=== PATIENT | female | born 1990 | race Caucasian/White ===

== ENCOUNTER 2016-05-11 10:26 | Emergency (ER) | payer OTHER, MEDICAID ==
[~2016-05-11] VITALS: Ht 160 cm; Wt 118.2 kg
[~2016-05-11 10:26] MED LIST: ALDACTONE 25MG25 M1 PO; BCP TD; CYMBALTA 30MG30 MG PO; LORTAB 10/500 51 TAB; METRONIDAZOLE500 MG PO; NORCO 325 MG-51 TAB PO; PHENERGAN 25 TA25 MG PO; PHENERGAN25 MG RC; PRINIVIL10 MG PO; VICODIN 5/5001 UDTAB PO
[2016-05-11 10:30] VITALS: TEMP 98.2
[2016-05-11] MEDS ORDERED: ZOVIA PO (10:36)
[2016-05-11 11:17] LABS: BASO # 0.1 (0.0-0.2); BASO % 0.7 % (0.0-2.0); EOS # 0.1 (0.0-0.7); EOS % 1.4 % (0-4.0); GRAN # 7.7 (1.4-6.5); GRAN % 78.5 % (42.2-75.2); HEMOGLOBIN 15.3 g/dl (12.5-16.0); LYMPH # 1.4 (1.2-3.4); LYMPH % 14.3 % (20.0-51.0); MEAN CELL VOLUME 96 fl (80.0-100.0); MEAN CORPUSCULAR HEMOGLOBIN 32 pg (27.0-31.0); MEAN CORPUSCULAR HGB CONC 33 g/dl (33.0-37.0); MEAN PLATELET VOLUME 9.5 fl (7.4-10.4); MONO # 0.4 (0.1-0.6); MONO % 4.2 % (1.7-9.3); PLATELET COUNT 334 K/mm3 (130-400); RED BLOOD COUNT 4.79 M/mm3 (4.10-5.30); REDCELL DISTRIBUTION WIDTH-CV 14.3 % (11.5-14.5); WHITE BLOOD COUNT 9.8 K/mm3 (4.8-10.8)
[2016-05-11 11:28] LABS: ADJUSTED CALCIUM 9.4 mg/dL (8.4-10.2); ALBUMIN 4.1 gm/dL (3.5-5.0); BILIRUBIN,TOTAL 0.5 mg/dL (0.0-1.0); CALCIUM 9.5 mg/dL (8.4-10.2); CREATININE, serum 0.71 mg/dL (0.52-1.25); POTASSIUM 4.2 mmol/L (3.4-5.0); TOTAL PROTEIN 7.2 gm/dL (6.4-8.2)
[2016-05-11] MEDS ORDERED: ULTRAM 50MG TAB50 MG PO (12:40)
[2016-05-11 12:51] LABS: PH 6 (5-8); URINE APPEARANCE Clear; URINE BACTERIA None Seen /hpf; URINE BILIRUBIN Negative (NEGATIVE); URINE BLOOD 3+ (NEGATIVE); URINE COLOR Yellow; URINE GLUCOSE Negative (NEGATIVE); URINE KETONE Negative (NEGATIVE); URINE RBC None Seen /hpf; URINE UROBILINOGEN Negative (NEGATIVE); URINE WBC 0-2 /hpf
[2016-05-11] MEDS ORDERED: FLAGYL500 MG PO (13:28)
[2016-05-11 13:53] VITALS: BP 143/109; PULSE 83
[2016-05-11 16:22] LABS: CHLAMYDIA/TRACH by PCR Female Not Detected; NEISSERIA GON by PCR Female Not Detected
== END 2016-05-11 13:53 | disposition home or self-care (01) ==
LOC: COL.ER 10:26
PROVIDERS: Physician Assistant
DX: N83.202 Unspecified ovarian cyst, left side (principal); N76.0 Acute vaginitis; B96.89 Other specified bacterial agents as the cause of diseases classified elsewhere
CPT/HCPCS: J1170; J1885; J2405; J7030

== ENCOUNTER → 2016-11-09 | Outpatient (CLI) | payer BC, MEDICAID ==
[~2016-11-09] MED LIST changes: +FLAGYL500 MG PO; +ULTRAM 50MG TAB50 MG PO; +ZOVIA PO
== END ==
LOC: MHCPAIN 11:31
DX: G89.29 Other chronic pain (principal); M47.817 Spondylosis without myelopathy or radiculopathy, lumbosacral region; M53.3 Sacrococcygeal disorders, not elsewhere classified; F17.210 Nicotine dependence, cigarettes, uncomplicated
CPT/HCPCS: G0463

== ENCOUNTER → 2016-11-23 | Outpatient (CLI) | payer BC, MEDICAID | LOC: MHCPAIN 10:03 | DX: G89.29 Other chronic pain (principal); M47.817 Spondylosis without myelopathy or radiculopathy, lumbosacral region; M53.3 Sacrococcygeal disorders, not elsewhere classified | CPT/HCPCS: G0463 ==

== ENCOUNTER → 2016-12-23 | Outpatient (CLI) | payer BC, MEDICAID, OTHER ==
[~2016-12-23] MED LIST changes: +ATARAX 25MG25 MG/TAB PO; +ZESTORETIC 25 M1 TAB PO; +ZOFRAN ODT4 MG PO
== END ==
LOC: MHCPAIN 10:35
DX: M53.3 Sacrococcygeal disorders, not elsewhere classified (principal)
CPT/HCPCS: G0260; J1040; Q9967

== ENCOUNTER → 2017-01-21 | Outpatient (CLI) | payer BC, MEDICAID ==
[~2017-01-21] MED LIST changes: -ATARAX 25MG25 MG/TAB PO; -ZESTORETIC 25 M1 TAB PO; -ZOFRAN ODT4 MG PO
== END ==
LOC: MHCPAIN 10:31
DX: G89.29 Other chronic pain (principal); M47.817 Spondylosis without myelopathy or radiculopathy, lumbosacral region; M53.3 Sacrococcygeal disorders, not elsewhere classified; F17.210 Nicotine dependence, cigarettes, uncomplicated; Z98.1 Arthrodesis status
CPT/HCPCS: G0463

== ENCOUNTER → 2017-03-18 | Outpatient (CLI) | payer BC, MEDICAID | LOC: MHCPAIN 10:56 | DX: G89.29 Other chronic pain (principal); M47.817 Spondylosis without myelopathy or radiculopathy, lumbosacral region; M53.3 Sacrococcygeal disorders, not elsewhere classified; F17.210 Nicotine dependence, cigarettes, uncomplicated | CPT/HCPCS: G0463 ==

== ENCOUNTER → 2017-06-06 | Outpatient (CLI) | payer BC, MEDICAID | LOC: MHCPAIN 09:43 | DX: G89.29 Other chronic pain (principal); M47.817 Spondylosis without myelopathy or radiculopathy, lumbosacral region; M53.3 Sacrococcygeal disorders, not elsewhere classified | CPT/HCPCS: G0463 ==

== ENCOUNTER → 2017-09-05 | Outpatient (CLI) | payer BC, MEDICAID | LOC: MHCPAIN 08:40 | DX: G89.29 Other chronic pain (principal); M47.817 Spondylosis without myelopathy or radiculopathy, lumbosacral region; M53.3 Sacrococcygeal disorders, not elsewhere classified; F17.210 Nicotine dependence, cigarettes, uncomplicated | CPT/HCPCS: G0463 ==

== ENCOUNTER 2017-09-28 19:46 | Emergency (ER) | payer BC, MEDICAID ==
[~2017-09-28] VITALS: Ht 160 cm; Wt 127.3 kg
[2017-09-28 19:51] VITALS: TEMP 98.8
[2017-09-28 20:39] LABS: COLLECTION METHOD CLEAN CATCH
[2017-09-28 20:53] LABS: MUCOUS Present /lpf; PH 5 (5-8); URINE APPEARANCE Hazy; URINE BACTERIA None Seen /hpf; URINE BILIRUBIN Negative (NEGATIVE); URINE BLOOD 1+ (NEGATIVE); URINE COLOR Yellow; URINE GLUCOSE Negative (NEGATIVE); URINE KETONE Negative (NEGATIVE); URINE LEUKOCYTE ESTERASE Negative (NEGATIVE); URINE NITRATE Negative (NEGATIVE); URINE PROTEIN(semi-quant) Negative (NEGATIVE); URINE UROBILINOGEN Negative (NEGATIVE)
[2017-09-28 21:20] LABS: BASO # 0.1 (0.0-0.2); BASO % 0.5 % (0.0-2.0); EOS # 0.2 (0.0-0.7); EOS % 1.1 % (0-4.0); GRAN % 61.5 % (42.2-75.2); HEMATOCRIT 44.1 % (37.0-47.0); HEMOGLOBIN 15.4 g/dl (12.5-16.0); LYMPH # 4.1 (1.2-3.4); LYMPH % 27.8 % (20.0-51.0); MEAN CELL VOLUME 95 fl (80.0-100.0); MEAN CORPUSCULAR HEMOGLOBIN 33 pg (27.0-31.0); MEAN CORPUSCULAR HGB CONC 35 g/dl (33.0-37.0); MEAN PLATELET VOLUME 9.5 fl (7.4-10.4); MONO # 1.2 (0.1-0.6); PLATELET COUNT 296 K/mm3 (130-400); RED BLOOD COUNT 4.65 M/mm3 (4.10-5.30)
[2017-09-28] MEDS ORDERED: ATARAX 25MG25 MG/TAB PO (21:34)
[2017-09-28] MEDS ORDERED: ZESTORETIC 25 M1 TAB PO (21:34)
[2017-09-28 21:39] LABS: ALBUMIN 4.2 gm/dL (3.5-5.0); BILIRUBIN,TOTAL 0.8 mg/dL (0.0-1.0); C-REACTIVE PROTEIN 0.6 mg/dL (0.0-0.9); CALCIUM 9.3 mg/dL (8.4-10.2); CREATININE, serum 0.74 mg/dL (0.52-1.25); POTASSIUM 3.4 mmol/L (3.4-5.0); TOTAL PROTEIN 7.8 gm/dL (6.4-8.2)
[2017-09-28] MEDS ORDERED: ZOFRAN ODT4 MG PO (22:27)
[2017-09-28 22:45] VITALS: BP 133/73; PULSE 107
== END 2017-09-28 23:23 | disposition home or self-care (01) ==
LOC: COL.ER 19:46
PROVIDERS: Nurse Practitioner
DX: R10.31 Right lower quadrant pain (principal); F32.9 Major depressive disorder, single episode, unspecified; I10 Essential (primary) hypertension; F17.210 Nicotine dependence, cigarettes, uncomplicated; Z98.890 Other specified postprocedural states; Z90.49 Acquired absence of other specified parts of digestive tract; Z90.89 Acquired absence of other organs
CPT/HCPCS: J1170; J2405; J7030

== ENCOUNTER → 2017-10-05 | Outpatient (CLI) | payer BC, MEDICAID ==
[~2017-10-05] MED LIST changes: +ATARAX 25MG25 MG/TAB PO; +ZESTORETIC 25 M1 TAB PO; +ZOFRAN ODT4 MG PO
== END ==
LOC: MHCPAIN 08:25
DX: G89.29 Other chronic pain (principal); M47.817 Spondylosis without myelopathy or radiculopathy, lumbosacral region; M53.3 Sacrococcygeal disorders, not elsewhere classified
CPT/HCPCS: G0463

== ENCOUNTER → 2017-11-04 | Outpatient (CLI) | payer BC, MEDICAID | LOC: MHCPAIN 10:48 | DX: G89.29 Other chronic pain (principal); M47.817 Spondylosis without myelopathy or radiculopathy, lumbosacral region; M53.3 Sacrococcygeal disorders, not elsewhere classified | CPT/HCPCS: G0463 ==

== ENCOUNTER → 2017-12-02 | Outpatient (CLI) | payer BC, MEDICAID | LOC: MHCPAIN 11:30 | DX: G89.29 Other chronic pain (principal); M47.817 Spondylosis without myelopathy or radiculopathy, lumbosacral region; M53.3 Sacrococcygeal disorders, not elsewhere classified | CPT/HCPCS: G0463 ==

== ENCOUNTER → 2017-12-28 | Outpatient (CLI) | payer BC, MEDICAID | LOC: MHCPAIN 09:31 | DX: G89.29 Other chronic pain (principal); M47.817 Spondylosis without myelopathy or radiculopathy, lumbosacral region; M53.3 Sacrococcygeal disorders, not elsewhere classified | CPT/HCPCS: G0463 ==

== ENCOUNTER → 2018-01-27 | Outpatient (CLI) | payer BC, MEDICAID | LOC: MHCPAIN 09:08 | DX: G89.29 Other chronic pain (principal); M47.817 Spondylosis without myelopathy or radiculopathy, lumbosacral region; M53.3 Sacrococcygeal disorders, not elsewhere classified | CPT/HCPCS: G0463 ==

== ENCOUNTER → 2018-02-09 | Outpatient (CLI) | payer BC, MEDICAID | LOC: MHCPAIN 09:52 | DX: M53.3 Sacrococcygeal disorders, not elsewhere classified (principal) | CPT/HCPCS: G0260; J1040; Q9967 ==

== ENCOUNTER 2022-07-14 15:28 | Emergency (ER) | payer SELFPAY ==
[~2022-07-14] VITALS: Ht 160 cm; Wt 127.3 kg
[2022-07-14 15:34] VITALS: BP 146/93; PULSE 102; TEMP 97.7
[2022-07-14] MEDS ORDERED: NORCO 325 MG-51 TAB PO (16:47)
== END 2022-07-14 17:07 | disposition home or self-care (01) ==
LOC: COL.ER 15:28
DX: S99.922A Unspecified injury of left foot, initial encounter (principal); Z88.5 Allergy status to narcotic agent; Z28.310 Unvaccinated for COVID-19; W03.XXXA Other fall on same level due to collision with another person, initial encounter
CPT/HCPCS: L4386